=== PATIENT | female | born 1940 | race Hispanic/Latino ===

== ENCOUNTER 2020-08-19 17:01 | Emergency (ER) | payer OTHER, MEDICARE ==
[~2020-08-19] VITALS: Ht 157.5 cm; Wt 60.3 kg
[2020-08-19 17:03] VITALS: BP 186/63
[2020-08-19 19:13] VITALS: BP 179/63
[2020-08-19 19:17] LABS: EOSINOPHILS % (AUTO) 3.5 % (0.0-8.0); LYMPHOCYTES % (AUTO) 16.2 % (21.0-51.0); MEAN CORPUSCULAR HGB CONC 31.8 g/dL (32.0-36.0); MONOCYTES % (AUTO) 8.6 % (3.0-13.0); NEUTROPHILS % (AUTO) 69.9 % (40.0-77.0); PLATELET COUNT (AUTO) 171 K/uL (130-400); RED BLOOD CELL COUNT(AUTO) 3.75 MIL/uL (4.00-5.50); RED CELL DISTRIBUTION WIDTH 17.5 % (11.0-15.5); WHITE BLOOD COUNT (AUTO) 6.3 K/uL (4.8-10.8)
[2020-08-19 19:34] LABS: CREATININE 5.7 mg/dL (0.5-1.5); POTASSIUM 4.4 mmol/L (3.5-5.1)
[2020-08-19 19:39] LABS: ALBUMIN 3.4 g/dL (3.5-5.0); BILIRUBIN,TOTAL 0.3 mg/dL (0.2-1.0); TOTAL PROTEIN, SERUM 6.8 g/dL (6.0-8.3)
[2020-08-19 20:30] LABS: CRP QUANTITATIVE 7.7 mg/L (0.00-9.0); MAGNESIUM 2.2 mg/dL (1.80-2.40)
[2020-08-19] MEDS ORDERED: INSULIN HUMULIN R 100 UNIT/ML 3ML SQ ONE (20:30)
[2020-08-19 23:22] VITALS: BP 186/68
[2020-08-20 00:31] VITALS: BP 170/55
[2020-08-20 02:09] VITALS: BP 169/45
== END 2020-08-20 03:01 | disposition home or self-care (01) ==
LOC: EDH 17:01
DX: E86.0 Dehydration (principal); R14.0 Abdominal distension (gaseous); M62.81 Muscle weakness (generalized); R19.7 Diarrhea, unspecified; I10 Essential (primary) hypertension; E10.9 Type 1 diabetes mellitus without complications; Z88.6 Allergy status to analgesic agent; Z98.890 Other specified postprocedural states
CPT/HCPCS: 36415; 71045; 74018; 80053; 82948; 83735; 83880; 84484; 85025; 86140; 93005; 96372; 99285; J1815